=== PATIENT | male | born 1950 | race Caucasian/White ===

== ENCOUNTER 2023-09-12 11:40 | Inpatient (IN) | payer OTHER ==
[~2023-09-12] VITALS: Ht 182.9 cm; Wt 94.7 kg
[~2023-09-12 11:40] MED LIST: ASPI81CH PO; CENTRUM SILVER1 EAC2; FISH OIL 1,0001 EA10 PO; MAGCHL64ER; METO25 PO; PRAV20; TAMSULOSIN HCL0.4 M1 PO
[2023-09-12 13:19] LABS: BASOPHILS ABSOLUTE AUTO 0.03 K/mm3 (0.00-0.23); BASOPHILS PERCENT AUTO 0 % (0-2); EOSINOPHILS ABSOLUTE AUTO 0.09 K/mm3 (0.00-0.68); EOSINOPHILS PERCENT AUTO 1 % (0-6); Hematocrit 37.2 % (37.0-53.0); IMMATURE GRAN ABSOLUTE AUTO 0.04 K/mm3 (0.00-0.10); IMMATURE GRAN PERCENT AUTO 0 % (0-1); LYMPHOCYTES ABSOLUTE AUTO 2.37 K/mm3 (0.84-5.20); LYMPHOCYTES PERCENT AUTO 23 % (21-46); MONOCYTES ABSOLUTE AUTO 0.89 K/mm3 (0.16-1.47); MONOCYTES PERCENT AUTO 9 % (4-13); Mean Corpuscular HGB 34.8 pg (26.0-34.0); Mean Corpuscular HGB Conc 34.9 g/dL (31.5-36.5); Mean Corpuscular Volume 100 fL (80-100); Mean Platelet Volume 10.7 fL (9.1-12.4); NEUTROPHILS ABSOLUTE AUTO 7.07 K/mm3 (1.96-9.15); NEUTROPHILS PERCENT AUTO 67 % (41-73); Platelet Count 169 K/mm3 (150-400); RDW Coefficient Variation 12.7 % (11.7-14.2); RDW Standard Deviation 45.8 fL (35.1-46.3); Red Blood Cell Count 3.74 M/mm3 (4.30-5.90); White Blood Cell Count 10.49 K/mm3 (4.00-11.30)
[2023-09-12 13:38] LABS: Albumin, Blood 3.5 g/dL (3.4-5.0); Albumin/Globulin Ratio 1.2 (0.8-1.8); Bilirubin, Total 0.4 mg/dL (0.1-1.0); Bun/Creatinine Ratio 18.5 (12.0-20.0); Calcium, Blood 8.6 mg/dL (8.5-10.1); Creatinine, Blood 0.97 mg/dL (0.60-1.20); Potassium, Blood 4.1 mmol/L (3.5-5.5); Total Protein, Blood 6.5 g/dL (6.4-8.2)
[2023-09-12 19:15] VITALS: BP 134/58
[2023-09-12] MEDS ORDERED: MAGNESIUM OXID500 MG PO (19:36)
[2023-09-12] MEDS ORDERED: PRAV20 PO (19:37)
[2023-09-12] MEDS ORDERED: MELO7.5 PO (19:39)
[2023-09-12] MEDS ORDERED: ALLO300 PO (19:39)
[2023-09-13] VITALS (15 sets, daily range): BP systolic 102–139; BP diastolic 50–96
--- NOTE | 2023-09-13 01:48 | NUR ---
PT ARRIVED TO THE UNIT AT SHIFT CHANGE (1955). PT UP AD JOANNE, AMBULATES WITH A STEADY GAIT. INDEPENDENT WITH ADL's. PT A&O x4, VSS, AFEBRILE. PT ADMITTED FOR A FLUTTER WITH RAPID VENTRICULAR RESPONSE. PT DENIES CHEST PAIN, NO SOB. RESP RATE EVEN AND UNLABORED. PRN IV METOPROLOL GIVEN FOR HR AT 140. PT ABLE TO MAKE NEEDS KNOWN. CALL LIGHT WITHIN REACH, WCTM.
[2023-09-13 08:39] LABS: Bun/Creatinine Ratio 24.9 (12.0-20.0); Calcium, Blood 8.9 mg/dL (8.5-10.1); Creatinine, Blood 0.85 mg/dL (0.60-1.20)
--- NOTE | 2023-09-13 12:55 | NUR ---
PLACED CALL TO REGARDING PT'S CONCERN THAT HIS HEART RATE IS NOT RESPONDING TO PO OR IV LOPRESSOR. RECEIVED ORDERS FOR TRANSFER TO PCU & A CARDIZEM GTT. REPORT CALLED TO JULIETA RODRÍGUEZ.
--- NOTE | 2023-09-13 12:59 | NUR ---
MADE AWARE OF PT LEAVING BUILDING TO GO SMOKE AND THAT HOSPITAL POLICY FOR 1:1 SITTER HAS BEEN INITIATED. SITTER AT BEDSIDE. PT ALSO INFORMED THAT IF SHE LEAVES AGAIN IT WILL BE CONSIDERED LEAVING AMA.
--- NOTE | 2023-09-13 13:22 | NUR ---
PT TO PCU 14 VIA W/C WITH ALL PERSOANL BELONGINGS.
--- NOTE | 2023-09-13 16:49 | NUR ---
PT WAS TRANSFERED TO PCU 14 FROM MEDICAL FLOOR THIS AFTERNOON TO BEGIN ON CARDIZEM DRIP. UPON ARRIVING TO UNIT HE WAS STARTED ON 5MG CARDIZEM AND TITRATED EVERY 15 MINUTES UNTIL WE REACHED A GOAL OF 15MG/HR HIS HEART RESPONDED VERY WELL TO CARDIZEM AND WITHIN AN HOUR I WAS ABLE TO BEGIN TITRATING THE CARDIZEM DRIP DOWNWARDS, AND AT THIS TIME HIS CARDIZEM DRIP IS AT 5MG/HR WITH HR OF 89 WITH A-FLUTTER NOTED ON MONITOR WITH BP 109/60. PT DENIES ANY CHEST PAIN OR SOB DURING THIS SHIFT. HE IS RESTING WELL IN BED, GOOD APPETITE.
[2023-09-14] VITALS: BP 90/53
[2023-09-14 04:00] VITALS: BP 109/68
--- NOTE | 2023-09-14 06:48 | NUR ---
SHIFT SUMMARY PATIENT ALERT AND ORIENTED X4. HAD NO COMPLAINTS OF PAIN OR SHORTNESS OF BREATH. ON ROOM AIR WITH SPO2 HIGH 90'S.BLOOD PRESSURE STABLE. CONTINUES AFLUTTER ON TELE, CARDIZEM DRIP HAS BEEN OFF MOST OF THE NIGHT, HEART RATE RANGING FROM 70-90'S AT REST, REACHES THE 140'S WITH ACTIVITY. NO ACUTE ISSUES NOTED OVERNIGHT. WILL CONTINUE TO MONITOR. CALL LIGHT WITHIN REACH.
[2023-09-14 07:36] LABS: BASOPHILS ABSOLUTE AUTO 0.04 K/mm3 (0.00-0.23); BASOPHILS PERCENT AUTO 0 % (0-2); EOSINOPHILS ABSOLUTE AUTO 0.14 K/mm3 (0.00-0.68); EOSINOPHILS PERCENT AUTO 1 % (0-6); Hematocrit 36.2 % (37.0-53.0); Hemoglobin 12.9 g/dL (13.5-17.5); IMMATURE GRAN ABSOLUTE AUTO 0.04 K/mm3 (0.00-0.10); IMMATURE GRAN PERCENT AUTO 0 % (0-1); LYMPHOCYTES ABSOLUTE AUTO 2.45 K/mm3 (0.84-5.20); LYMPHOCYTES PERCENT AUTO 25 % (21-46); MONOCYTES ABSOLUTE AUTO 1.17 K/mm3 (0.16-1.47); MONOCYTES PERCENT AUTO 12 % (4-13); Mean Corpuscular HGB 35.2 pg (26.0-34.0); Mean Corpuscular HGB Conc 35.6 g/dL (31.5-36.5); Mean Corpuscular Volume 99 fL (80-100); Mean Platelet Volume 10.4 fL (9.1-12.4); NEUTROPHILS ABSOLUTE AUTO 6.18 K/mm3 (1.96-9.15); NEUTROPHILS PERCENT AUTO 62 % (41-73); Platelet Count 178 K/mm3 (150-400); RDW Coefficient Variation 12.8 % (11.7-14.2); RDW Standard Deviation 45.6 fL (35.1-46.3); Red Blood Cell Count 3.66 M/mm3 (4.30-5.90); White Blood Cell Count 10.02 K/mm3 (4.00-11.30)
[2023-09-14 07:55] LABS: Albumin, Blood 3.3 g/dL (3.4-5.0); Albumin/Globulin Ratio 1.1 (0.8-1.8); Bilirubin, Total 0.6 mg/dL (0.1-1.0); Calcium, Blood 8.7 mg/dL (8.5-10.1); Creatinine, Blood 0.95 mg/dL (0.60-1.20); Potassium, Blood 4.1 mmol/L (3.5-5.5); Total Protein, Blood 6.3 g/dL (6.4-8.2)
[2023-09-14 09:07] VITALS: BP 109/71
[2023-09-14] MEDS ORDERED: DILT180 (11:29)
[2023-09-14] MEDS ORDERED: XARELTO20 MG PO (11:30)
--- NOTE | 2023-09-14 12:49 | NUR ---
PT EXPRESSED UNDERSTANDING OF D/C TEACHING AND D/C INSTRUCTIONS. HE DENIES FURTHER WUESTIONS. HIS MED[facility]
== END 2023-09-14 12:37 | disposition home or self-care (01) | DRG 310 ==
LOC: ER 11:40 → MEDS 11:41 → PCU 09-13 12:53 → MEDS 09-13 12:54 → PCU 09-13 13:18
PROVIDERS: Family Medicine; Student in an Organized Health Care Education/Training Program; ADMIT Student in an Organized Health Care Education/Training Program
DX: I48.92 Unspecified atrial flutter (principal); N40.0 Benign prostatic hyperplasia without lower urinary tract symptoms; M10.9 Gout, unspecified; E78.5 Hyperlipidemia, unspecified; I10 Essential (primary) hypertension; I48.91 Unspecified atrial fibrillation; Z88.8 Allergy status to other drugs, medicaments and biological substances; Z79.82 Long term (current) use of aspirin
CPT/HCPCS: 36415; 71045; 80048; 80053; 84484; 85025; 93005; 93010; 96361; 96374; 96375; 96376; 99285-25; A9270; G0378; J7030

== ENCOUNTER → 2023-11-01 | Outpatient (CLI) | payer OTHER ==
[~2023-11-01] MED LIST changes: +ALLO300 PO; +DILT180; +MAGNESIUM OXID500 MG PO; +MELO7.5 PO; +PRAV20 PO; +XARELTO20 MG PO
== END ==
LOC: LAB 14:03 → LAB SHORT 14:03 → LAB FUT 10-31 13:25 → EDSTATUS 10-31 13:25
DX: R82.998 Other abnormal findings in urine (principal)
CPT/HCPCS: 88108